=== PATIENT | female | born 1940 | race Caucasian/White ===

== ENCOUNTER 2019-01-12 10:22 | Emergency (ER) | payer MEDICARE ==
[~2019-01-12] VITALS: Ht 167.6 cm; Wt 55.0 kg
--- NOTE | 2019-01-12 10:46 | NUR ---
Pt ambulated to room with steady independent gait, at side. States that she was walking the dog with her this morning when she became tangled in the leash, tripped on a driveway edge, and fell to the pavement. Pt has small scrapes to R shoulder, R elbow, R knee, and R hand. Pt also has one large deep lac over right eyebrow. Bleeding controlled. Pt denies any pain, nausea, LOC, or other s/s.
--- NOTE | 2019-01-12 11:16 | NUR ---
Pt to CT.
[2019-01-12] MEDS ORDERED: DIPH,PERTUSS(ACELL),TET VAC/PF 0.5 ML IM-VACC ONE ×2 (11:17→11:30)
[2019-01-12] MEDS ORDERED: LIDOCAINE 1%, 50ML INFIL ONE (11:30)
--- NOTE | 2019-01-12 11:33 | NUR ---
Pt returned from CT. Tdap given. Lido at bedside. Pt denies any needs or concerns at this time.
[2019-01-12 12:37] VITALS: BP 128/72
--- NOTE | 2019-01-12 12:38 | NUR ---
Pt in bed, resting with at bedside. Denies any needs or concerns at this time.
== END 2019-01-12 13:17 | disposition home or self-care (01) ==
LOC: ED 13:01
DX: S01.81XA Laceration without foreign body of other part of head, initial encounter (principal); S09.90XA Unspecified injury of head, initial encounter; W01.0XXA Fall on same level from slipping, tripping and stumbling without subsequent striking against object, initial encounter; Y93.89 Activity, other specified; Y92.410 Unspecified street and highway as the place of occurrence of the external cause; Y99.8 Other external cause status
CPT/HCPCS: 12052; 70450; 70486; 90471; 90715; 99284

== ENCOUNTER 2019-01-22 10:25 | Emergency (ER) | payer MEDICARE ==
[~2019-01-22] VITALS: Ht 167.6 cm; Wt 54.9 kg
[2019-01-22 10:46] VITALS: BP 128/65
== END 2019-01-22 11:40 | disposition home or self-care (01) ==
LOC: ED 11:24
DX: S01.111D Laceration without foreign body of right eyelid and periocular area, subsequent encounter (principal); W18.30XD Fall on same level, unspecified, subsequent encounter
CPT/HCPCS: 99281; 99282

== ENCOUNTER 2020-01-19 11:18 | Emergency (ER) | payer MEDICARE ==
[~2020-01-19] VITALS: Ht 170.2 cm; Wt 52.7 kg
[2020-01-19 11:23] VITALS: BP 150/54
== END 2020-01-19 12:50 | disposition home or self-care (01) ==
LOC: ED 12:46
DX: S01.81XA Laceration without foreign body of other part of head, initial encounter (principal); Z86.73 Personal history of transient ischemic attack (TIA), and cerebral infarction without residual deficits; W18.30XA Fall on same level, unspecified, initial encounter; Y93.89 Activity, other specified; Y92.009 Unspecified place in unspecified non-institutional (private) residence as the place of occurrence of the external cause; Y99.8 Other external cause status
CPT/HCPCS: 12013; 70450; 93005; 99284

== ENCOUNTER 2020-04-02 09:41 | Emergency (ER) | payer MEDICARE, OTHER ==
[~2020-04-02] VITALS: Ht 167.6 cm; Wt 52.0 kg
[2020-04-02 09:48] VITALS: BP 131/66
[2020-04-02] MEDS ORDERED: LIDOCAINE-MPF 1%, 5ML INFIL ONE (10:30)
--- NOTE | 2020-04-02 10:40 | NUR ---
PT TO CT AT THIS TIME
[2020-04-02] MEDS ORDERED: LIDOCAINE-MPF 1%, 5ML ONE (10:49)
[2020-04-02] MEDS ORDERED: NEOSPORIN OINT. PKT 1 PACKET ONE (12:37)
== END 2020-04-02 13:12 | disposition home or self-care (01) ==
LOC: ED 11:12
DX: S01.81XA Laceration without foreign body of other part of head, initial encounter (principal); S09.90XA Unspecified injury of head, initial encounter; M54.2 Cervicalgia; Z86.718 Personal history of other venous thrombosis and embolism; Z90.710 Acquired absence of both cervix and uterus; W01.0XXA Fall on same level from slipping, tripping and stumbling without subsequent striking against object, initial encounter; Y93.89 Activity, other specified; Y92.009 Unspecified place in unspecified non-institutional (private) residence as the place of occurrence of the external cause; Y99.8 Other external cause status
CPT/HCPCS: 12052; 70450; 72125; 99285

== ENCOUNTER 2020-04-09 12:28 | Emergency (ER) | payer MEDICARE, OTHER ==
[~2020-04-09] VITALS: Ht 170.2 cm; Wt 51.9 kg
[2020-04-09 12:44] VITALS: BP 115/76
== END 2020-04-09 13:16 | disposition home or self-care (01) ==
LOC: ED 13:10
DX: S01.81XD Laceration without foreign body of other part of head, subsequent encounter (principal); X58.XXXD Exposure to other specified factors, subsequent encounter
CPT/HCPCS: 99281

== ENCOUNTER 2020-04-30 17:10 | Emergency (ER) | payer MEDICARE, OTHER ==
[~2020-04-30] VITALS: Ht 170.2 cm; Wt 52.4 kg
[2020-04-30 17:16] VITALS: BP 143/80
--- NOTE | 2020-04-30 17:49 | NUR ---
unwitnessed fall with resulting deep nasal bridge laceration. Unknown loc, no blood thinner Acting normal per huband. moving all extremities, pupil 3mm/reactive bilaterally
--- NOTE | 2020-04-30 17:54 | NUR ---
no neck wwlo-n-rweevr deferred at this time
--- NOTE | 2020-04-30 18:06 | NUR ---
production underwriter called social work as patient has been falling quite frequently lately. agreeable to sw consult to discuss help so no further falls
--- NOTE | 2020-04-30 18:10 | NUR ---
to ct scan
[2020-04-30 18:54] LABS: BASOPHILS % (AUTO) 0 % (0-1); EOSINOPHILS % (AUTO) 0 % (1-7); LYMPHOCYTES % (AUTO) 12 % (22-44); MEAN CORPUSCULAR HEMOGLOBIN 29.3 pg (27.0-34.8); MEAN CORPUSCULAR HGB CONC 32.4 g/dL (32.4-35.8); MEAN PLATELET VOLUME 7.1 fL (7.4-10.4); MONOCYTES % (AUTO) 4 % (2-9); NEUTROPHILS % (AUTO) 84 % (42-75); PLATELET COUNT 282 x10^3/uL (130-400); RED BLOOD COUNT 4.62 x10^6/uL (3.82-5.3)
[2020-04-30] MEDS ORDERED: LIDOCAINE 1%-EPI 1:100K, 20ML SQ ONE (19:00)
[2020-04-30 19:02] LABS: ALANINE AMINOTRANSFERASE 23 U/L (12-78); ANION GAP 4 mmol/L (5-15); CALCIUM 9.2 mg/dL (8.5-10.1); CHLORIDE 105 mmol/L (98-107)
[2020-04-30 19:04] LABS: ALKALINE PHOSPHATASE 67 U/L (45-117); BILIRUBIN,TOTAL 0.5 mg/dL (0.2-1.0); TOTAL PROTEIN 7.5 g/dL (6.4-8.2)
--- NOTE | 2020-04-30 19:15 | NUR ---
Straight cath obtained-walked to lab Patient/ updated on estimated poc- both adamant "we want to go home."
[2020-04-30 19:20] LABS: MD SCAN
[2020-04-30 19:26] LABS: MICROSCOPIC AUTO
[2020-04-30] MEDS ORDERED: LIDOCAINE-MPF 1%, 5ML ONE (19:36)
[2020-04-30] MEDS ORDERED: NEOSPORIN OINT. PKT 1 PACKET ONE (19:55)
[2020-04-30] MEDS ORDERED: NEOSPORIN OINT. PKT 1 PACKET TP ONE (20:00)
[2020-04-30] MEDS ORDERED: LIDOCAINE 1%, 10ML INFIL ONE (20:00)
[2020-04-30] MEDS ORDERED: ACETAMINOPHEN 325 MG TABLET ONE (20:33)
--- NOTE | 2020-04-30 20:45 | NUR ---
road test ambulation unremarkable-provider aware
[2020-04-30] MEDS ORDERED: ACETAMINOPHEN 325 MG TABLET PO ONE (21:00)
== END 2020-04-30 21:11 | disposition home or self-care (01) ==
LOC: ED 18:33
DX: S02.2XXB Fracture of nasal bones, initial encounter for open fracture (principal); S09.90XA Unspecified injury of head, initial encounter; Z90.710 Acquired absence of both cervix and uterus; Z86.73 Personal history of transient ischemic attack (TIA), and cerebral infarction without residual deficits; W18.30XA Fall on same level, unspecified, initial encounter; Y93.89 Activity, other specified; Y92.009 Unspecified place in unspecified non-institutional (private) residence as the place of occurrence of the external cause; Y99.8 Other external cause status
CPT/HCPCS: 12052; 36415; 70450; 70486; 72125; 80053; 81001; 85025; 99285; J3490

== ENCOUNTER 2020-07-04 13:41 | Emergency (ER) | payer MEDICARE, OTHER ==
[~2020-07-04] VITALS: Ht 170.2 cm; Wt 53.8 kg
--- NOTE | 2020-07-04 14:02 | NUR ---
PATIENT WHEELED BACK FROM TRIAGE WITH CHIEF C/O GLF. PER SPOUSE PATIENT FELL IN THE KITCHEN TODAY ABOUT NOON. PATIENT HIT THE BACK OF HER HEAD, DENIES LOC. PATIENT STATES SHE LOST HER BALANCE, DENIES DIZZINESS, LACERATION NOTED ON BACK OF HEAD, NO ACTIVE BLEEDING. SIDE RAILS UP X2, CALL LIGHT WITHIN REACH. ER PROVIDER AT BEDSIDE FOR EVALUATION. Addendum: 07/04/20 at 1411 by BRITTANY PER SPOUSE, PATIENT HAD A MINI STROKE A FEW YEARS AGO AND CAN NOW ONLY ANSWER YES OR NO QUESTIONS, PATIENT IS [id number].
[2020-07-04] MEDS ORDERED: L.E.T SOLUTION TP ONE ×3 (14:15→14:30)
--- NOTE | 2020-07-04 14:27 | NUR ---
Lorraine APPLIED TO LACERATION, MANAGEMENT EXPERT AT BEDSIDE FOR EKG AND WOUND CLEANING.
[2020-07-04 14:46] LABS: BASOPHILS % (AUTO) 1 % (0-1); EOSINOPHILS % (AUTO) 1 % (1-7); LYMPHOCYTES % (AUTO) 19 % (22-44); MEAN CORPUSCULAR HEMOGLOBIN 29.8 pg (27.0-34.8); MEAN CORPUSCULAR HGB CONC 33.3 g/dL (32.4-35.8); MEAN PLATELET VOLUME 7.7 fL (7.4-10.4); MONOCYTES % (AUTO) 5 % (2-9); NEUTROPHILS % (AUTO) 75 % (42-75); PLATELET COUNT 263 x10^3/uL (130-400); RED BLOOD COUNT 4.39 x10^6/uL (3.82-5.3); RED CELL DISTRIBUTION WIDTH 13.1 % (9.6-15.2)
[2020-07-04 14:48] LABS: MD NO
[2020-07-04 14:49] LABS: ALBUMIN 3.8 g/dL (3.4-5.0); ANION GAP 3 mmol/L (5-15); CALCIUM 9.2 mg/dL (8.5-10.1); CHLORIDE 107 mmol/L (98-107); CREATININE 0.92 mg/dL (0.55-1.02)
--- NOTE | 2020-07-04 14:51 | NUR ---
ER PROVIDER AT BEDSIDE FOR BRIAN.
[2020-07-04 15:05] VITALS: BP 127/52
--- NOTE | 2020-07-04 15:07 | NUR ---
PATIENT RESTING IN GURNEY, TOLERATED STAPLE PLACEMENT WELL, SPOUSE AT BEDSIDE, NADN, VSS, SIDE RAILS UP X2, CALL LIGHT WITHIN REACH. CT SCAN NOTIFIED PATIENT IS READY FOR IMAGING.
--- NOTE | 2020-07-04 15:27 | NUR ---
PATIENT TO CT SCAN.
--- NOTE | 2020-07-04 16:44 | NUR ---
TASK RN: Patient/Caregiver given discharge instructions and they have confirmed that they understand the instructions. Patient ambulatory with shuffle gait, assisted by spouse
== END 2020-07-04 16:45 | disposition home or self-care (01) ==
LOC: ED 14:49
DX: S06.0X9A Concussion with loss of consciousness of unspecified duration, initial encounter (principal); S01.01XA Laceration without foreign body of scalp, initial encounter; Z86.73 Personal history of transient ischemic attack (TIA), and cerebral infarction without residual deficits; Z90.710 Acquired absence of both cervix and uterus; W01.0XXA Fall on same level from slipping, tripping and stumbling without subsequent striking against object, initial encounter; Y93.89 Activity, other specified; Y92.098 Other place in other non-institutional residence as the place of occurrence of the external cause; Y99.8 Other external cause status
CPT/HCPCS: 12001; 36415; 70450; 72125; 80048; 82040; 85025; 93005; 99285

== ENCOUNTER 2020-08-10 15:57 | Emergency (ER) | payer MEDICARE, OTHER ==
[~2020-08-10] VITALS: Ht 170.2 cm; Wt 54.7 kg
--- NOTE | 2020-08-10 16:16 | NUR ---
TOI RN: PT REPORTS SHE TRIPPED AND FELL TODAY AND HIT HER HEAD. NO LOC. LAC TO HEAD. BLEEDING CONTROLLED. VS STABLE. AT BEDSIDE. CALL LIGHT IN PLACE. REPORT GIVEN TO YUDITH OJEDA
[2020-08-10] MEDS ORDERED: LIDOCAINE-MPF 1%, 5ML ONE (16:25)
[2020-08-10] MEDS ORDERED: LIDOCAINE 1%-EPI 1:100K, 20ML SQ ONE (16:30)
--- NOTE | 2020-08-10 16:32 | NUR ---
pt reports tripping over throw rugs at home and not wanting to use walking aid. pt and educated on removing throw rugs for safety and use of walking aid. pt offered cane or walker for dc, pt declining at this time.
[2020-08-10 19:00] VITALS: BP 143/59
--- NOTE | 2020-08-10 19:25 | NUR ---
pt with limited motion with walking, taking small shuffling steps frequently while trying to get her balance. pts very accepting of education, stating "I'm getting rid of the throw rugs". pts asking about walkers, pt educated on how to use walker at home, pt shakes head "no" at the conversation of walker but states he wants to get one for safety. pt and verbalize understanding of risks if pt continues to fall at home including potential for brain bleed and . pt in wheelchair out to car.
== END 2020-08-10 19:42 | disposition home or self-care (01) ==
LOC: ED 16:14
DX: S01.81XA Laceration without foreign body of other part of head, initial encounter (principal); Z86.73 Personal history of transient ischemic attack (TIA), and cerebral infarction without residual deficits; Z90.710 Acquired absence of both cervix and uterus; X58.XXXA Exposure to other specified factors, initial encounter; Y93.89 Activity, other specified; Y92.89 Other specified places as the place of occurrence of the external cause; Y99.8 Other external cause status
CPT/HCPCS: 12052; 70450; 99285

== ENCOUNTER 2020-08-20 13:41 | Emergency (ER) | payer MEDICARE, OTHER ==
[~2020-08-20] VITALS: Ht 170.2 cm; Wt 54.3 kg
[2020-08-20] MEDS ORDERED: LIDOCAINE-MPF 1%, 5ML ONE ×2 (14:04→14:44)
--- NOTE | 2020-08-20 14:09 | NUR ---
Assumed care of patient. MGLF. Two lacerations to the forehead and one one the nose. at bedside. Will continue to monitor.
[2020-08-20] MEDS ORDERED: BUPIVACAINE 0.25% ONE (14:20)
[2020-08-20] MEDS ORDERED: BUPIVACAINE/PF-EPI 0.25% 1:200K SQ ONE (14:30)
[2020-08-20] MEDS ORDERED: LIDOCAINE-MPF 1%, 5ML INFIL ONE (14:30)
[2020-08-20] MEDS ORDERED: LIDOCAINE 1%-EPI 1:100K, 20ML SQ ONE (15:00)
--- NOTE | 2020-08-20 15:45 | NUR ---
ARNEL Cortez at bedside suturing wound.
[2020-08-20] MEDS ORDERED: NEOSPORIN OINT. PKT 1 PACKET ONE (16:50)
--- NOTE | 2020-08-20 16:55 | NUR ---
Wounds dressed by JAQUAN Sommer.
[2020-08-20 17:15] VITALS: BP 135/86
--- NOTE | 2020-08-20 17:36 | NUR ---
Patient/Caregiver given discharge instructions and they have confirmed that they understand the instructions. Taken out in wheelchair.
== END 2020-08-20 17:39 | disposition home or self-care (01) ==
LOC: ED 16:00
DX: S01.21XA Laceration without foreign body of nose, initial encounter (principal); S01.111A Laceration without foreign body of right eyelid and periocular area, initial encounter; S09.90XA Unspecified injury of head, initial encounter; W01.0XXA Fall on same level from slipping, tripping and stumbling without subsequent striking against object, initial encounter; Y93.89 Activity, other specified; Z90.710 Acquired absence of both cervix and uterus; Z86.73 Personal history of transient ischemic attack (TIA), and cerebral infarction without residual deficits; Y92.009 Unspecified place in unspecified non-institutional (private) residence as the place of occurrence of the external cause; Y99.8 Other external cause status
CPT/HCPCS: 12013; 12053; 12054; 70450; 70486; 72125; 99285